=== PATIENT | female | born 1980 | race African-American/Black ===

== ENCOUNTER 2018-06-16 08:57 | Emergency (ER) | payer BC, OTHER ==
[~2018-06-16] VITALS: Ht 172.7 cm; Wt 68.0 kg
[2018-06-16] MEDS ORDERED: NORFLEX100 MG PO (09:30)
[2018-06-16] MEDS ORDERED: NAPROSYN500 MG PO (09:30)
[2018-06-16 10:15] VITALS: BP 107/75
== END 2018-06-16 10:15 | disposition home or self-care (01) ==
LOC: ER 08:57
DX: G44.209 Tension-type headache, unspecified, not intractable (principal)

== ENCOUNTER 2020-05-11 20:50 | Emergency (ER) | payer OTHER ==
[~2020-05-11] VITALS: Ht 172.7 cm; Wt 70.3 kg
[~2020-05-11 20:50] MED LIST: NAPROSYN500 MG PO; NORFLEX100 MG PO
[2020-05-11] MEDS ORDERED: NOHOMEMEDICATIONS (22:49)
[2020-05-12] MEDS ORDERED: LIDOCAINE VISC100 ML PO (00:44)
[2020-05-12] MEDS ORDERED: IBUPROFEN 600600 M1 PO (00:44)
[2020-05-12 00:57] VITALS: BP 132/87
== END 2020-05-12 00:59 | disposition home or self-care (01) ==
LOC: ER 20:50
DX: J02.8 Acute pharyngitis due to other specified organisms (principal); B34.9 Viral infection, unspecified